=== PATIENT | male | born 1935 | race Two or more races ===

== ENCOUNTER 2017-05-05 08:13 | Outpatient (CLI) | payer OTHER | END 2017-05-05 08:17 | disposition home or self-care (01) | LOC: SONOGRAMA 08:13 | DX: R19.01 Right upper quadrant abdominal swelling, mass and lump (principal); K85.90 Acute pancreatitis without necrosis or infection, unspecified; R17 Unspecified jaundice; R74.8 Abnormal levels of other serum enzymes ==

== ENCOUNTER 2017-05-12 11:27 | Outpatient (CLI) | payer OTHER | END 2017-05-12 15:01 | disposition home or self-care (01) | LOC: MRI 11:27 | DX: K85.90 Acute pancreatitis without necrosis or infection, unspecified (principal); R17 Unspecified jaundice; K80.20 Calculus of gallbladder without cholecystitis without obstruction | CPT/HCPCS: 74181 ==

== ENCOUNTER 2020-02-13 06:38 | Outpatient (CLI) | payer OTHER | END 2020-02-13 06:49 | disposition home or self-care (01) | LOC: LAB 06:38 | PROVIDERS: ATTEND Radiology Diagnostic Radiology | DX: S25.20XA Unspecified injury of superior vena cava, initial encounter (principal) ==

== ENCOUNTER 2020-02-14 07:14 | Outpatient (CLI) | payer OTHER | END 2020-02-14 07:24 | disposition home or self-care (01) | LOC: TOM 07:14 | PROVIDERS: ATTEND Internal Medicine Nephrology | DX: Q61.02 Congenital multiple renal cysts (principal); I70.8 Atherosclerosis of other arteries | CPT/HCPCS: 71260; Q9965 ==

== ENCOUNTER 2020-03-12 08:37 | Outpatient (CLI) | payer OTHER | END 2020-03-12 08:42 | disposition home or self-care (01) | LOC: RAD 08:37 | DX: M25.561 Pain in right knee (principal) ==